=== PATIENT | female | born 1995 | race Hispanic/Latino ===

== ENCOUNTER 2017-09-12 15:51 | Emergency (ER) | payer OTHER ==
[~2017-09-12] VITALS: Ht 144.8 cm; Wt 44.5 kg
[2017-09-12 18:46] LABS: BILIRUBIN,URINE NEGATIVE (NEGATIVE); CLARITY,URINE SL CLOUDY (CLEAR); COLOR,URINE YELLOW (YELLOW); KETONES,URINE NEGATIVE (NEGATIVE); LEUKOCYTE ESTERASE ,URINE NEGATIVE (NEGATIVE); NITRITE,URINE NEGATIVE (NEGATIVE); PROTEIN,URINE DIPSTICK NEGATIVE (NEGATIVE); URINE UROBILINOGEN 0.2 mg/dL (0.2 - 1)
[2017-09-12 18:47] LABS: PREGNANCY TEST, URINE NEGATIVE (NEGATIVE)
[2017-09-12 18:59] LABS: BACTERIA,URINE MODERATE /HPF; EPITHELIAL CELLS,URINE MODERATE /LPF; MUCUS,URINE MODERATE (RARE)
[2017-09-12 21:11] LABS: BASOPHILS % 0.3 % (0.0-1.0); EOSINOPHILS # (AUTO) 0.2 (0.0-0.4); EOSINOPHILS % 2.8 % (0.0-6.0); HEMATOCRIT 36.8 % (34.2-44.1); HEMOGLOBIN 13.2 g/dL (12.0-16.0); LYMPHOCYTES # (AUTO) 2.5 (1.0-3.2); MEAN CORPUSCULAR HEMOGLOBIN 32.6 pg (28-32); MEAN CORPUSCULAR HGB CONC 35.9 g/dL (31-35); MEAN CORPUSCULAR VOLUME 90.9 fL (81-99); MONOCYTES # (AUTO) 0.3 (0.2-0.8); MONOCYTES % 5.8 % (4.4-11.3); NEUTROPHILS # (AUTO) 2.7 (2.1-6.9); NEUTROPHILS % 46.9 % (38.7-80.0); PLATELET COUNT 318 x10e3/uL (140-360); RED BLOOD COUNT 4.05 x10e6/uL (3.6-5.1); RED CELL DISTRIBUTION WIDTH 11.5 % (11.7-14.4)
[2017-09-12 21:43] VITALS: BP 112/62
== END 2017-09-12 21:50 | disposition home or self-care (01) ==
LOC: ER 15:51
DX: N92.0 Excessive and frequent menstruation with regular cycle (principal); G40.909 Epilepsy, unspecified, not intractable, without status epilepticus
CPT/HCPCS: 36415; 81001; 81025; 85025; 87086; 99283

== ENCOUNTER 2017-12-21 11:04 | Emergency (ER) | payer OTHER ==
[~2017-12-21] VITALS: Ht 144.8 cm; Wt 43.5 kg
--- OUTSIDE RECORDS SUMMARY | 2017-12-21 11:06 | XMS REPORT | Continuity of Care Document ---
Author Author [facility] Organization [facility] Address [address] [place] [address] Phone Unavailable Care Team Providers Care Passenger Car Inspector Name Role Phone NO, PCP PCP Unavailable Insurance Providers Guarantor Velma Castrejon Address [address] [place] [address] Email [email or web address] Payer Self Pay Subscriber's Name Velma Castrejon Relationship 18 Self / Same As Patient Advance Directives Directive Response Recorded Date/Time Does the patient have an advance directive? No 01/24/17 11:03am If yes, is advance directive on file with [facility]? No 01/24/17 11:03am If not on file with [facility] will patient provide a copy? Yes 09/12/17 7:08pm Do you have a Directive to Physician? No 09/12/17 7:08pm Do you have a Medical Power of Lance Crewmember? No 09/12/17 7:08pm Do you have an out of hospital Do Not Resuscitate Order? No 09/12/17 7:08pm Do you have any special needs we should be aware of? No 09/12/17 7:08pm Do you have a support person here with you today? Yes 09/12/17 7:08pm Did patient receive Notice of Privacy Practices? Yes 09/12/17 7:08pm Did patient receive patient rights and responsibilities? Yes 09/12/17 7:08pm Problems No problem information available. Medications No medication information available. Social History Smoking Status Start Date Stop Date Never Smoker Hospital Discharge Instructions No hospital discharge instruction information available. Plan of Care Discharge Date 09/12/17 9:50pm Disposition HOME, SELF-CARE Condition at Discharge Stable Instructions/Education Provided Abnormal Uterine Bleeding Forms Provided Work/School Excuse Prescriptions See Medication Section Referrals Your HEAD START DIRECTOR Provider Order Date: As needed Functional Status No functional status information available. Allergies, Adverse Reactions, Alerts No known allergies. Immunizations No immunization information available. Vital Signs Acute Vital Signs Vital Response Date/Time Temperature (Fahrenheit) 98.2 degrees F (97.6 - 99.5) 09/12/2017 9:43pm Pulse Pulse Rate (adult) 70 bpm (60 - 90) 09/12/2017 9:43pm Respiratory Rate 18 bpm (12 - 24) 09/12/2017 9:43pm Blood Pressure 112/62 mm Hg 09/12/2017 9:43pm Height 4 ft 9 in 09/12/2017 4:21pm Weight 98 lb 09/12/2017 4:21pm Body Mass Index 21.2 kg/m^2 09/12/2017 4:21pm Results Laboratory Results Test Name Result Units Flags Reference Collection Date/Time Result Date/ Time Comments Urine Opiates Screen NEGATIVE NEGATIVE 01/24/2017 11:15am 01/24/2017 11:43am Urine Barbiturates Screen NEGATIVE NEGATIVE 01/24/2017 11:15am 2016 11:43am Urine Phencyclidine Screen NEGATIVE NEGATIVE 01/24/2017 11:15am 01/24 11:43am Urine Amphetamines Screen NEGATIVE NEGATIVE 01/24/2017 11:15am 2016 11:43am Urine Benzodiazepines Screen NEGATIVE NEGATIVE 01/24/2017 11:15am 10/2016 11:43am Urine Cocaine Screen NEGATIVE NEGATIVE 01/24/2017 11:15am 01/24/2017 11:43am Urine Cannabinoids Screen NEGATIVE NEGATIVE 01/24/2017 11:15am 2016 11:43am THESE RESULTS ARE FOR MEDICAL TREATMENT ONLY *THIS REPORT CONTAINS UNCONFIRMED SCREENING RESULTS* POSITIVE RESULTS WILL BE CONFIRMED BY REFERENCE LAB UPON REQUEST CUT-OFF DRUG CLASS CONCENTRATION ng/mL Amphetamines 1000 Methamphetamines 1000 Cocaine 300 Opiate 300 Phencyclidine 25 Cannabinoid 50 Barbiturates 300 Benzodiazepine 300 Methadone 300 Sodium Level 140 mmol/L 136-145 01/24/2017 10:01/24/2017 11:42am Potassium Level 3.8 mmol/L 3.5-5.1 01/24/2017 10:01/24/2017 11: 42am Chloride Level 107 mmol/L 98-107 01/24/2017 10:01/24/2017 11:42am Carbon Dioxide Level 19 mmol/L L 22-29 01/24/2017 10:01/24/2017 11: 42am Anion Gap 17.8 mmol/L H 8-16 01/24/2017 10:01/24/2017 11:42am Blood Urea Nitrogen 15 mg/dL 7-01/24/2017 10:01/24/2017 11: 42am Creatinine 0.79 mg/dL 0.57-1.11 01/24/2017 10:01/24/2017 11:42am BUN/Creatinine Ratio 19 6-25 01/24/2017 10:01/24/2017 11:42am Estimat Glomerular Filtration Rate > 60 ML/MIN 60- 01/24/2017 10:01/24/2017 11:42am Ranges were taken from the National Kidney Disease Education Program and the National Kid[employer] Foundation literature. Reference ranges: 60 or greater: Normal 16-59 (for 3 consecutive months): Chronic kidney disease 15 or less: Kidney failure Glucose Level 101 mg/dL 74-118 01/24/2017 10:01/24/2017 11:42am Calcium Level 9.2 mg/dL 8.4-10.2 01/24/2017 10:01/24/2017 11:42am Total Bilirubin 0.3 mg/dL 0.2-1.2 01/24/2017 10:01/24/2017 11: 42am Aspartate Amino Transf (AST/SGOT) 21 IU/L 5-34 01/24/2017 10:01/24 11:42am Alanine Aminotransferase (ALT/SGPT) 17 IU/L 0-55 01/24/2017 10:10/2016 11:42am Total Protein 7.9 g/dL 6.5-8.1 01/24/2017 10:01/24/2017 11:42am Albumin 4.2 g/dL 3.5-5.0 01/24/2017 10:15am 01/24/2017 11:42am Globulin 3.7 g/dL H 2.3-3.5 01/24/2017 10:15am 01/24/2017 11:42am Albumin/Globulin Ratio 1.1 0.8-2.0 01/24/2017 10:15am 01/24/2017 11: 42am Alkaline Phosphatase 60 IU/L 40-150 01/24/2017 10:15am 01/24/2017 11: 42am White Blood Count 5.73 x10e3/uL 4.8-10.8 09/12/2017 8:10pm 09/12/2017 9 :11pm Red Blood Count 4.05 x10e6/uL 3.6-5.1 09/12/2017 8:10pm 09/12/2017 9: 11pm Hemoglobin 13.2 g/dL 12.0-16.0 09/12/2017 8:1009/12/2017 9:11pm Hematocrit 36.8 % 34.2-44.1 09/12/2017 8:1009/12/2017 9:11pm Mean Corpuscular Volume 90.9 fL 81-99 09/12/2017 8:10pm 09/12/2017 9: 11pm Mean Corpuscular Hemoglobin 32.6 pg H 28-32 09/12/2017 8:10pm 2017 9:11pm Mean Corpuscular Hemoglobin Concent 35.9 g/dL H 31-35 09/12/2017 8:1009/12/2017 9:11pm Red Cell Distribution Width 11.5 % L 11.7-14.4 09/12/2017 8:102017 9:11pm Platelet Count 318 x10e3/uL 140-360 09/12/2017 8:10pm 09/12/2017 9: 11pm Neutrophils (%) (Auto) 46.9 % 38.7-80.0 09/12/2017 8:10pm 09/12/2017 9: 11pm Lymphocytes (%) (Auto) 44.0 % H 18.0-39.1 09/12/2017 8:1009/12/2017 9 :11pm Monocytes (%) (Auto) 5.8 % 4.4-11.3 09/12/2017 8:10pm 09/12/2017 9: 11pm Eosinophils (%) (Auto) 2.8 % 0.0-6.0 09/12/2017 8:10pm 09/12/2017 9: 11pm Basophils (%) (Auto) 0.3 % 0.0-1.0 09/12/2017 8:10pm 09/12/2017 9:11pm IM GRANULOCYTES % 0.2 % 0.0-1.0 09/12/2017 8:10pm 09/12/2017 9:11pm Neutrophils # (Auto) 2.7 2.1-6.9 09/12/2017 8:10pm 09/12/2017 9:11pm Lymphocytes # (Auto) 2.5 1.0-3.2 09/12/2017 8:10pm 09/12/2017 9:11pm Monocytes # (Auto) 0.3 0.2-0.8 09/12/2017 8:10pm 09/12/2017 9:11pm Eosinophils # (Auto) 0.2 0.0-0.4 09/12/2017 8:10pm 09/12/2017 9:11pm Basophils # (Auto) 0.0 0.0-0.1 09/12/2017 8:10pm 09/12/2017 9:11pm Absolute Immature Granulocyte (auto 0.01 x10e3/uL 0-0.1 09/12/2017 8: 10pm 09/12/2017 9:11pm Urine Color YELLOW YELLOW 09/12/2017 5:50pm 09/12/2017 6:46pm Urine Clarity SL CLOUDY CLEAR 09/12/2017 5:50pm 09/12/2017 6:46pm Urine Specific [place] 1.025 1.010-1.025 09/12/2017 5:50pm 2017 6:46pm Urine pH 6 5 - 7 09/12/2017 5:50pm 09/12/2017 6:46pm Urine Leukocyte Esterase NEGATIVE NEGATIVE 09/12/2017 5:50pm 2017 6:46pm Urine Nitrite NEGATIVE NEGATIVE 09/12/2017 5:50pm 09/12/2017 6:46pm Urine Protein NEGATIVE NEGATIVE 09/12/2017 5:50pm 09/12/2017 6:46pm Urine Glucose (UA) NEGATIVE NEGATIVE 09/12/2017 5:50pm 09/12/2017 6: 46pm Urine Ketones NEGATIVE NEGATIVE 09/12/2017 5:50pm 09/12/2017 6:46pm Urine Urobilinogen 0.2 mg/dL 0.2 - 1 09/12/2017 5:50pm 09/12/2017 6: 46pm Urine Bilirubin NEGATIVE NEGATIVE 09/12/2017 5:50pm 09/12/2017 6: 46pm Urine Blood 3+ H NEGATIVE 09/12/2017 5:50pm 09/12/2017 6:46pm Urine WBC NONE /HPF 0-5 09/12/2017 5:50pm 09/12/2017 6:59pm Urine RBC 6-10 /HPF H 0-5 09/12/2017 5:50pm 09/12/2017 6:59pm Urine Bacteria MODERATE /HPF H NONE 09/12/2017 5:50pm 09/12/2017 6:59pm Urine Epithelial Cells MODERATE /LPF NONE 09/12/2017 5:50pm 09/12/2017 6:59pm Urine Mucus MODERATE H RARE 09/12/2017 5:50pm 09/12/2017 6:59pm Urine Test NEGATIVE NEGATIVE 09/12/2017 5:50pm 09/12/2017 6 :47pm Procedures No procedure information available. Encounters Encounter Location Arrival/Admit Date Discharge/Depart Date Attending Provider Departed Emergency Room [facility] 09/12/17 3:51pm 9:50pm MIGUEL ÁNGEL RODGERS MD Departed Emergency Room [facility] 06/12/17 10:41pm 06/12 11:15pm YUKI SEPULVEDA MD Departed Emergency Room [facility] 01/24/17 10:45am 01/24 12:30pm MIGUEL ÁNGEL VINSON MD
[2017-12-21 11:45] LABS: BASOPHILS % 0.2 % (0.0-1.0); EOSINOPHILS % 0.2 % (0.0-6.0); HEMATOCRIT 40.4 % (34.2-44.1); HEMOGLOBIN 14.6 g/dL (12.0-16.0); LYMPHOCYTES # (AUTO) 2.1 (1.0-3.2); LYMPHOCYTES % 25.4 % (18.0-39.1); MEAN CORPUSCULAR HEMOGLOBIN 32.6 pg (28-32); MEAN CORPUSCULAR HGB CONC 36.1 g/dL (31-35); MEAN CORPUSCULAR VOLUME 90.2 fL (81-99); MONOCYTES # (AUTO) 0.6 (0.2-0.8); MONOCYTES % 7.4 % (4.4-11.3); NEUTROPHILS # (AUTO) 5.4 (2.1-6.9); NEUTROPHILS % 66.7 % (38.7-80.0); PLATELET COUNT 304 x10e3/uL (140-360); RED BLOOD COUNT 4.48 x10e6/uL (3.6-5.1); RED CELL DISTRIBUTION WIDTH 11.4 % (11.7-14.4)
[2017-12-21 11:47] LABS: BILIRUBIN,URINE NEGATIVE (NEGATIVE); CLARITY,URINE SL CLOUDY (CLEAR); COLOR,URINE YELLOW (YELLOW); KETONES,URINE 1+ (NEGATIVE); LEUKOCYTE ESTERASE ,URINE NEGATIVE (NEGATIVE); NITRITE,URINE NEGATIVE (NEGATIVE); PROTEIN,URINE DIPSTICK NEGATIVE (NEGATIVE); URINE UROBILINOGEN 0.2 mg/dL (0.2 - 1)
[2017-12-21 11:48] LABS: PREGNANCY TEST, URINE NEGATIVE (NEGATIVE)
[2017-12-21 12:01] LABS: BACTERIA,URINE FEW /HPF
[2017-12-21 12:02] LABS: EPITHELIAL CELLS,URINE FEW /LPF
[2017-12-21 12:09] LABS: ALANINE AMINOTRANSFERASE 18 IU/L (0-55); ALBUMIN 4.6 g/dL (3.5-5.0); ALBUMIN/GLOBULIN RATIO 1.3 (0.8-2.0); ALKALINE PHOSPHATASE 60 IU/L (40-150); AMYLASE 40 U/L (25-125); ANION GAP 13.9 mmol/L (8-16); BLOOD UREA NITROGEN 13 mg/dL (7-26); BUN/CREATININE RATIO 17 (6-25); CALCIUM 9.7 mg/dL (8.4-10.2); CARBON DIOXIDE 22 mmol/L (22-29); CHLORIDE 107 mmol/L (98-107); CREATININE, SERUM 0.77 mg/dL (0.57-1.11); EST GLOMERULAR FILTRATION RATE > 60 ML/MIN (60-); GLUCOSE 96 mg/dL (74-118); LIPASE 13 U/L (8-78); POTASSIUM 3.9 mmol/L (3.5-5.1); SODIUM 139 mmol/L (136-145)
[2017-12-21 13:50] VITALS: BP 125/83
== END 2017-12-21 13:45 | disposition home or self-care (01) ==
LOC: ER 11:04
DX: R19.7 Diarrhea, unspecified (principal); R10.30 Lower abdominal pain, unspecified; R11.2 Nausea with vomiting, unspecified
CPT/HCPCS: 36415; 80053; 81001; 81025; 82150; 83690; 83735; 85025; 99283

== ENCOUNTER 2021-03-31 21:18 | Emergency (ER) | payer OTHER ==
[~2021-03-31] VITALS: Ht 144.8 cm; Wt 48.1 kg
[2021-04-01 02:31] VITALS: BP 119/72
== END 2021-04-01 00:22 | disposition home or self-care (01) ==
LOC: ER 21:34
DX: S83.92XA Sprain of unspecified site of left knee, initial encounter (principal); M25.462 Effusion, left knee; Y93.75 Activity, martial arts
CPT/HCPCS: 99283